=== PATIENT | male | born 1965 | race Caucasian/White ===

== ENCOUNTER 2020-02-26 08:52 | Emergency (ER) | payer SELFPAY ==
[~2020-02-26] VITALS: Ht 170.2 cm; Wt 78.1 kg
[2020-02-26 08:59] VITALS: BP 157/97
--- NOTE | 2020-02-26 09:31 | PHYS DOC ---
General Adult EDM: Chief Complaint: KNEE INJURY HPI: HPI: Patient is a 54-year-old male coming in for left knee pain and swelling. Was on his feet yesterday and was able to couple times, also around a 5K last week. Has had a similar episode in the past, about 1.5 years ago, was treated with steroids. Denies any direct injury, twisting, he noticed it started to get worse yesterday afternoon. Able to ambulate, painful with bending Review of Systems: Review of Systems: Constitutional: Denies fever or chills Eyes: Denies change in visual acuity HENT: Denies nasal congestion or sore throat Respiratory: Denies cough or shortness of breath Cardiovascular: Denies chest pain or edema GI: Denies abdominal pain, nausea, vomiting, bloody stools or diarrhea : Denies dysuria Musculoskeletal: Left knee pain and swelling Integument: Denies rash Neurologic: Denies headache, focal weakness or sensory changes Endocrine: Denies polyuria or polydipsia Lymphatic: Denies swollen glands Psychiatric: Denies depression or anxiety Allergies: Allergies: Allergies Coded Allergies Type Severity Reaction Last Updated Verified No Known Drug Allergies 02/26/20 No Physical Exam: PE: Constitutional: Well developed, well nourished, no acute distress, non-toxic appearance. [] HENT: Normocephalic, atraumatic, bilateral external ears normal, oropharynx moist, no oral exudates, nose normal. [] Eyes: PERRLA, EOMI, conjunctiva normal, no discharge. [] Neck: Normal range of motion, no tenderness, supple, no stridor. [] Cardiovascular:Heart rate regular rhythm, no murmur [] Lungs & Thorax: Bilateral breath sounds clear to auscultation [] Abdomen: Bowel sounds normal, soft, no tenderness, no masses, no pulsatile masses. [] Skin: Warm, dry, no erythema, no rash. [] Back: No tenderness, no CVA tenderness. [] Extremities: No tenderness, no cyanosis, no clubbing, ROM intact, no edema. [] Swelling and tenderness over left patella, no joint effusion Neurologic: Alert and oriented X 3, normal motor function, normal sensory function, no focal deficits noted. [] Psychologic: Affect normal, judgement normal, mood normal. [] EKG: EKG: [] Radiology/Procedures: Radiology/Procedures: Examination: KNEE LEFT 4V History: Reason: swelling / Spl. Instructions: / History: Comparison/Correlation: None Findings: Total of 4 images of the left knee were provided. Joint spaces are unremarkable. No fracture or bone destruction. Soft tissue prominence anterior to the patella noted. No knee joint effusion. Impression: Soft tissue swelling anterior to the patella. Correlate for the possibility of underlying prepatellar bursitis. [] Heart Score: Risk Factors: Risk Factors: DM, Current or recent (<one month) smoker, HTN, HLP, family history of CAD, obesity. Risk Scores: Score 0 - 3: 2.5% MACE over next 6 weeks - Discharge Home Score 4 - 6: 20.3% MACE over next 6 weeks - Admit for Clinical Observation Score 7 - 10: 72.7% MACE over next 6 weeks - Early Invasive Strategies Course & Med Decision Making: Course & Med Decision Making Pertinent Labs and Imaging studies reviewed. (See chart for details) Discussed with Charlotte yuriyjose l her symptoms were 2 to 3 days. Discussed options of trying a dose of steroids with return precautions. Discussed with patient the options and he is from out of town and has an orthopedic appointment in 2 days and would like to do the steroids with return precautions. Patient un derstands there is some risk that there might be an infection and will be treated immediately but clinical presentation suggest inflammation rather than a septic arthritis or bursitis [] Paulina Disclaimer: Paulina Disclaimer: This electronic medical record was generated, in whole or in part, using a voice recognition dictation system. Departure Departure: Impression: Primary Impression: Prepatellar bursitis of left knee Disposition: 01 HOME SELF CARE/HOMELESS Condition: STABLE Referrals: PCP,UNKNOWN (PCP) Patient Instructions: Bursitis Scripts Methylprednisolone (MEDROL) 4 Mg Tab.ds.pk 1 PKG PO UD for inflammation, #1 PKG Prov: FRANCOIS COUGHLIN MD 02/26/20 FRANCOIS COUGHLIN MD Feb 26, 2020 09:31
--- NOTE | 2020-02-26 09:40 | RAD ---
Examination: KNEE LEFT 4V History: Reason: swelling / Spl. Instructions: / History: Comparison/Correlation: None Findings: Total of 4 images of the left knee were provided. Joint spaces are unremarkable. No fracture or bone destruction. Soft tissue prominence anterior to the patella noted. No knee joint effusion. Impression: Soft tissue swelling anterior to the patella. Correlate for the possibility of underlying prepatellar bursitis. Electronically signed by: Rashawn Morris MD (02/26/2020 9:37 AM) [id number]
[2020-02-26] MEDS ORDERED: METH4TAB2 PO (10:07)
== END 2020-02-26 10:10 | disposition home or self-care (01) ==
LOC: ER 08:52
DX: M70.42 Prepatellar bursitis, left knee (principal); R60.0 Localized edema; Y93.89 Activity, other specified
CPT/HCPCS: 73564; 99283